=== PATIENT | female | born 1970 | race American Indian/Alaskan Native ===

== ENCOUNTER 2017-03-06 02:02 | Emergency (ER) | payer MEDICAID, OTHER ==
[2017-03-06 02:15] VITALS: BP 144/86; RESP 20; O2SAT 97
[2017-03-06] MEDS ORDERED: Sodium Chloride 0.9% 1,000 ML IV ONE (02:50)
[2017-03-06 02:51] LABS: HCG,QUALITATIVE URINE NEGATIVE (NEGATIVE)
[2017-03-06 02:52] LABS: SQUAMOUS EPITHIAL 4 /hpf (0-5); URINE BACTERIA RARE (<OCC); URINE BILIRUBIN NEGATIVE (NEGATIVE); URINE CLARITY Clear (Clear); URINE COLOR Yellow (YELLOW); URINE GLUCOSE (UA) NORMAL (Normal); URINE LEUKOCYTE ESTERASE NEG Leu/uL (Negative); URINE NITRATE NEGATIVE (NEGATIVE); URINE PROTEIN NEGATIVE (NEGATIVE)
--- NOTE | 2017-03-06 02:52 | C.PDOC ---
History Of Present Illness 46 year old female presents to the ER with a complaint of left flank/LLQ pain for the past week that worsened tonight. Patient states she believed she had a UTI, she began drinking cranberry juice and water but she reports the pain has not improved. She tried taking aleve at home with no relief to pain. Denies nausea, vomiting, diarrhea, or constipation. LMP was last month. Time Seen by Provider: 03/06/17 02:28 Chief Complaint (Nursing): Abdominal Pain History Per: Patient History/Exam Limitations: no limitations Onset/Duration Of Symptoms: Days Current Symptoms Are (Timing): Still Present Location Of Pain/Discomfort: LLQ, Other (Left flank) Radiation Of Pain To:: None Quality Of Discomfort: Unable To Describe Associated Symptoms: denies: Nausea, Vomiting, Diarrhea, Constipation Exacerbating Factors: None Alleviating Factors: None Recent travel outside of the [place]: No Abnormal Vaginal Bleeding: No Past Medical History Reviewed: Historical Data, Nursing Documentation, Vital Signs Vital Signs: Last Vital Signs Temp 98.2 F 03/06/17 02:12 Pulse 90 03/06/17 02:12 Resp 20 03/06/17 02:12 BP 144/86 03/06/17 02:12 Pulse Ox 97 03/06/17 05:17 - Medical History PMH: No Chronic Diseases Family History: States: Unknown Family Hx - Social History Hx Alcohol Use: No Hx Substance Use: No - Immunization History Hx Tetanus Toxoid Vaccination: No Hx Influenza Vaccination: No Hx Pneumococcal Vaccination: No Review Of Systems Constitutional: Negative for: Fever, Chills Respiratory: Negative for: Cough, Shortness of Breath Gastrointestinal: Positive for: Abdominal Pain (LLQ). Negative for: Nausea, Vomiting, Diarrhea, Constipation Musculoskeletal: Positive for: Back Pain (Left flank) Neurological: Negative for: Headache, Dizziness Physical Exam - Physical Exam Appears: Non-toxic Skin: Normal Color, Warm, Dry Head: Atraumatic, Normacephalic Eye(s): bilateral: Normal Inspection Oral Mucosa: Moist Chest: Symmetrical, No Tenderness Cardiovascular: Rhythm Regular Respiratory: Normal Breath Sounds, No Rales, No Rhonchi, No Wheezing Gastrointestinal/Abdominal: Soft, Tenderness (LLQ), No Guarding, No Rebound Back: No CVA Tenderness Neurological/Psych: Oriented x3, Normal Speech, Other (No focal deficits) ED Course And Treatment - Laboratory Results Result Diagrams: 03/06/17 03:03 03/06/17 03:03 O2 Sat by Pulse Oximetry: 97 (room air) Pulse Ox Interpretation: Normal - CT Scan/US CT abd/pel Other Rad Studies (CT/US): Read By Radiologist, Radiology Report Reviewed CT/US Interpretation: EXAM: CT Abdomen and Pelvis With Intravenous Contrast. CLINICAL HISTORY: 46 years old, female; Pain; Abdominal pain; Prior surgery; Surgery type: ; Additional info: Llq pain. TECHNIQUE: Axial computed tomography images of the abdomen and pelvis with intravenous contrast. All CT. scans at this facility use one or more dose reduction techniques, viz. : automated exposure control;. ma/kV adjustment per patient size (including targeted exams where dose is matched to indication; i.e. head); or iterative reconstruction technique. Coronal and sagittal reformatted images were created and reviewed. CONTRAST: 100 mL of [id number] administered intravenously. COMPARISON: No relevant prior studies available. FINDINGS: Lower thorax: Minimal atelectasis. ABDOMEN: Liver: Unremarkable. No mass. Gallbladder and bile ducts: No calcified stones. No ductal dilation. Pancreas: No ductal dilation. No mass. Spleen: No splenomegaly. Adrenals: No mass. Kidneys and ureters: No mass. No hydronephrosis. Stomach and bowel: Apparent mild mural/ fold thickening vs underdistention of few loops of small. bowel. No associated inflammatory stranding. Few minimally distended loops of small bowel, likely. ileus. Appendix: No definite findings to suggest acute appendicitis. PELVIS: Bladder: Moderate bladder wall thickening. Incomplete distention, limiting evaluation. Reproductive: Heterogeneous uterus with small exophytic mass. 3.5 x 2.6 x 2.7 cm hypodense. lesion within RIGHT adnexal region. 1.2 x 1.4 by 1.7 cm hypodense lesion within LEFT adnexal. region. ABDOMEN and PELVIS: Intraperitoneal space: Trace free fluid within pelvis. No free air. Bones/ joints: No acute fracture. Soft tissues: Small metallic density right lateral chest wall/breast. Vasculature: Minimal atherosclerotic disease of aorta. No aneurysm. Lymph nodes: No pathologically enlarged lymph nodes. IMPRESSION: 1. Possible mild enteritis. Clinical correlation is needed. 2. Mild cystitis vs underdistention. Correlate with urinalysis. 3. Probable fibroid uterus. 4. Possible adnexal cysts. Suggest ultrasound. 5. Incidental/non-acute findings are described above. Medical Decision Making Medical Decision Making: Plan: * CT abd/pel * Blood work * Urinalysis * IV fluids * Toradol Labs reviewed CT results: 1. Possible mild enteritis. Clinical correlation is needed. 2. Mild cystitis vs underdistention. Correlate with urinalysis. 3. Probable fibroid uterus. 4. Possible adnexal cysts. Suggest ultrasound. 5. Incidental/non-acute findings are described above. On re-evaluation, patient resting in bed and reports pain has improved. She has no fever and abdomen remains soft. I discussed results with the patient and provided copy of results. She feels comfortable going home and will be discharged. Patient given follow up instructions. Instructed to return to ER if symptoms worsen or new symptoms arise. Disposition Counseled Patient/Family Regarding: Studies Performed, Diagnosis, Need For Followup, Rx Given - Disposition Referrals: Rj Acevedo MD [Staff Provider] - Disposition: HOME/ ROUTINE Disposition Time: 05:20 Condition: IMPROVED Additional Instructions: Follow up with your primary medical doctor or clinic in 2-5 days for further evaluation. Take medications as prescribed. Return to the emergency department at any time if symptoms persist or worsen. Prescriptions: Ciprofloxacin [Cipro] 1 tab PO BID #10 tab Dicyclomine [Bentyl] 10 mg PO QID #20 cap Instructions: Enteritis (ED) Forms: [facility] (Croatian), Work Excuse - POA Present On Arrival: None - Clinical Impression Clinical Impression: Abdominal pain, Enteritis - PA / [employer]INTENANCE / Resident Statement MD/DO has reviewed & agrees with the documentation as recorded. - Scribe Statement The provider has reviewed the documentation as recorded by the Scribjodi Mena All medical record entries made by the Corina were at my direction and personally dictated by me. I have reviewed the chart and agree that the record accurately reflects my personal performance of the history, physical exam, medical decision making, and the department course for this patient. I have also personally directed, reviewed, and agree with the discharge instructions and disposition.
[2017-03-06 02:53] LABS: URINE BLOOD TRACE (NEGATIVE)
[2017-03-06] MEDS ORDERED: Sodium Chloride 0.9% 1,000 ML ONE (03:03)
[2017-03-06 03:07] LABS: EOS # 0.1 K/uL (0.0-0.7); EOS % 1.7 % (0.0-4.0); HEMOGLOBIN 11.7 g/dL (11.0-16.0); LYMPH # 2.2 K/uL (1.0-4.3); LYMPH % 45.3 % (20.0-40.0); MEAN CELL VOLUME 87.2 fL (81.0-99.0); MEAN CORPUSCULAR HEMOGLOBIN 28.7 pg (27.0-31.0); MEAN PLATELET VOLUME 8.5 fL (7.2-11.7); MONO # 0.4 K/uL (0.0-0.8); MONO % 8.1 % (0.0-10.0); NEUT # 2.1 K/uL (1.8-7.0); NEUT % 43.9 % (50.0-75.0); RBC 4.08 Mil/uL (3.80-5.20); RED CELL DISTRIBUTION WIDTH 18.1 % (11.5-14.5); WHITE BLOOD COUNT 4.8 K/uL (4.8-10.8)
[2017-03-06 03:26] LABS: ALBUMIN 3.8 g/dL (3.5-5.0); ALT/SGPT 22 U/L (9-52); AST/SGOT 22 U/L (14-36); BLOOD UREA NITROGEN 10 mg/dL (7-17); CALCIUM 8.2 mg/dl (8.6-10.4); GFR AFRICAN-AMERICAN > 60; GFR NON-AFRICAN AMERICAN > 60; LIPASE 155 U/L (23-300)
[2017-03-06] MEDS ORDERED: Iodixanol 320 MG/ML 100 ML BOTTLE IV ONE (04:14)
--- NOTE | 2017-03-06 05:08 | CT ---
EXAM: CT Abdomen and Pelvis With Intravenous Contrast CLINICAL HISTORY: 46 years old, female; Pain; Abdominal pain; Prior surgery; Surgery type: ; Additional info: Llq pain TECHNIQUE: Axial computed tomography images of the abdomen and pelvis with intravenous contrast. All CT scans at this facility use one or more dose reduction techniques, viz.: automated exposure control; ma/kV adjustment per patient size (including targeted exams where dose is matched to indication; i.e. head); or iterative reconstruction technique. Coronal and sagittal reformatted images were created and reviewed. CONTRAST: 100 mL of [id number] administered intravenously. COMPARISON: No relevant prior studies available. FINDINGS: Lower thorax: Minimal atelectasis. ABDOMEN: Liver: Unremarkable. No mass. Gallbladder and bile ducts: No calcified stones. No ductal dilation. Pancreas: No ductal dilation. No mass. Spleen: No splenomegaly. Adrenals: No mass. Kidneys and ureters: No mass. No hydronephrosis. Stomach and bowel: Apparent mild mural/fold thickening vs underdistention of few loops of small bowel. No associated inflammatory stranding. Few minimally distended loops of small bowel, likely ileus. Appendix: No definite findings to suggest acute appendicitis. PELVIS: Bladder: Moderate bladder wall thickening. Incomplete distention, limiting evaluation. Reproductive: Heterogeneous uterus with small exophytic mass. 3.5 x 2.6 x 2.7 cm hypodense lesion within RIGHT adnexal region. 1.2 x 1.4 by 1.7 cm hypodense lesion within LEFT adnexal region. ABDOMEN and PELVIS: Intraperitoneal space: Trace free fluid within pelvis. No free air. Bones/joints: No acute fracture. Soft tissues: Small metallic density right lateral chest wall/breast. Vasculature: Minimal atherosclerotic disease of aorta. No aneurysm. Lymph nodes: No pathologically enlarged lymph nodes. IMPRESSION: 1. Possible mild enteritis. Clinical correlation is needed. 2. Mild cystitis vs underdistention. Correlate with urinalysis. 3. Probable fibroid uterus. 4. Possible adnexal cysts. Suggest ultrasound. 5. Incidental/non-acute findings are described above.
[2017-03-06 05:31] VITALS: PULSE 75; TEMP 98.3
== END 2017-03-06 05:31 | disposition home or self-care (01) ==
LOC: C.ER 02:02
DX: K52.9 Noninfective gastroenteritis and colitis, unspecified (principal); R10.32 Left lower quadrant pain
CPT/HCPCS: 74177; 80053; 81001; 83690; 84703; 85025; 96361; 96374; 99284; J1885; J7040; Q9967